=== PATIENT | male | born 1975 ===

== ENCOUNTER 2018-07-21 12:48 | Emergency (ER) | payer OTHER ==
[2018-07-21 12:58] VITALS: RESP 18
[2018-07-21] MEDS ORDERED: SODIUM CHLORIDE 0.9% 1,000 ML IV STA (13:21)
[2018-07-21 14:02] LABS: Appearance,Urine Clear (Clear); Basophils # (A) 0.1 k/uL (0-0.2); Basophils % (A) 1 %; Bilirubin,Urine Negative (Negative); Blood,Urine Negative (Negative); Color,Urine Yellow; Eosinophils # (A) 0.2 k/uL (0-0.7); Eosinophils % (A) 3 %; Glucose,Urine (UA) Negative (Negative); HCT 44.9 % (39.0-53.0); HGB 15.5 gm/dL (13.0-17.5); Ketones,Urine Negative (Negative); Leukocyte Esterase,Urine Negative (Negative); Lymphocytes # (A) 2.6 k/uL (1.0-4.8); Lymphocytes % (A) 35 %; MCH 30.6 pg (25.0-35.0); MCHC 34.6 g/dL (31.0-37.0); MCV 88.5 fL (80.0-100.0); Mean Platelet Volume 6.5; Monocytes # (A) 0.3 k/uL (0-1.0); Monocytes % (A) 4 %; Neutrophils # (A) 4.1 k/uL (1.3-7.7); Neutrophils % (A) 55 %; Nitrite,Urine Negative (Negative); PH, Urine 6.5 (5.0-8.0); Platelet Count 227 k/uL (150-450); Protein,Urine Negative (Negative); RBC 5.07 m/uL (4.30-5.90); RDW 12.6 % (11.5-15.5); Urobilinogen,Urine <2.0 mg/dL (<2.0); WBC 7.4 k/uL (3.8-10.6)
[2018-07-21 14:10] LABS: ALT 40 U/L (21-72); AST 28 U/L (17-59); Alkaline Phosphatase 64 U/L (38-126); Anion Gap 9 mmol/L; Blood Urea Nitrogen 16 mg/dL (9-20); Calcium 9.3 mg/dL (8.4-10.2); Carbon Dioxide 26 mmol/L (22-30); Chloride 105 mmol/L (98-107); Glucose 119 mg/dL (74-99); Potassium 4.2 mmol/L (3.5-5.1); Sodium 140 mmol/L (137-145); Total Bilirubin 0.5 mg/dL (0.2-1.3); Total Protein 7.1 g/dL (6.3-8.2)
--- NOTE | 2018-07-21 14:24 | ED ---
General Adult HPI - General Chief complaint: Dizziness Stated complaint: headache Time Seen by Provider: 07/21/18 13:21 Source: patient, RN notes reviewed Mode of arrival: ambulatory Limitations: no limitations - History of Present Illness Initial comments: 43-year-old male presents emergency Department with intermittent headache, head pressure and dizziness. Patient states that symptoms have been going on for a while but seemed worse over the last 1 week. He states he had suppression the back side of his head and slight dizziness. He states he does not have take anything in his symptoms resolved. Denies any trauma denies fever, chills, neck pain, neck stiffness, chest pain, shortness breath, nausea, vomiting. Patient states that his never had any like this in the past no prior imaging of his brain. Significant other states states that he's had normal behavior no confusion no change in mentation. - Related Data Home Medications Medication Instructions Recorded Confirmed Ibuprofen [Motrin Ib] 400 mg PO Q6H PRN 07/21/18 07/21/18 Previous Rx's Medication Instructions Recorded Meclizine [Antivert] 25 mg PO TID PRN #15 tab 07/21/18 Allergies Allergy/AdvReac Type Severity Reaction Status Date / Time No Known Allergies Allergy Verified 07/21/18 13:38 Review of Systems ROS Statement: Those systems with pertinent positive or pertinent negative responses have been documented in the HPI. ROS Other: All systems not noted in ROS Statement are negative. Past Medical History Past Medical History: No Reported History History of Any Multi-Drug Resistant Organisms: None Reported Past Surgical History: No Surgical Hx Reported Past Psychological History: No Psychological Hx Reported Smoking Status: Never smoker Past Alcohol Use History: None Reported Past Drug Use History: None Reported General Exam Limitations: no limitations General appearance: alert, in no apparent distress Head exam: Present: atraumatic, normocephalic, normal inspection Eye exam: Present: normal appearance, PERRL, EOMI. Absent: scleral icterus, conjunctival injection, periorbital swelling ENT exam: Present: normal exam, normal oropharynx, mucous membranes moist Neck exam: Present: normal inspection, full ROM. Absent: tenderness, meningismus, lymphadenopathy Respiratory exam: Present: normal lung sounds bilaterally. Absent: respiratory distress, wheezes, rales, rhonchi, stridor Cardiovascular Exam: Present: regular rate, normal rhythm, normal heart sounds. Absent: systolic murmur, diastolic murmur, rubs, gallop, clicks Extremities exam: Present: normal inspection, full ROM, normal capillary refill. Absent: tenderness, pedal edema, joint swelling, calf tenderness Back exam: Present: full ROM. Absent: tenderness Neurological exam: Present: alert, oriented X3, CN II-XII intact, reflexes normal, other (Finger to nose intact bilaterally). Absent: motor sensory deficit Skin exam: Present: warm, dry, intact, normal color. Absent: rash Course Vital Signs 07/21/18 07/21/18 12:56 14:00 Temperature 97.5 F L Pulse Rate 66 60 Respiratory 18 18 Rate Blood Pressure 143/80 126/77 O2 Sat by Pulse 98 97 Oximetry EKG Findings - EKG Comments: EKG Findings:: EKG performed at 13:40 normal sinus rhythm with rate of 62 NM 138 QRS 94 QTC is QTC 380/[address] elevation or depression, normal ST segments Medical Decision Making - Medical Decision Making 43-year-old male presented for dizziness, intermittent head pressure. Patient had lab work, CT, EKG. Patient's found to have upper vomit CSF fluid collection the cerebellum. Patient may have underlying cyst. Patient will follow-up neurologist, PCP. Patient feels comfortable being discharged with Antivert return parameters were discussed. - Lab Data Result diagrams: 07/21/18 13:44 07/21/18 13:44 Lab Results 07/21/18 07/21/18 07/21/18 Range/Units 13:44 13:44 13:44 WBC 7.4 (3.8-10.6) k/uL RBC 5.07 (4.30-5.90) m/uL Hgb 15.5 (13.0-17.5) gm/dL Hct 44.9 (39.0-53.0) % MCV 88.5 (80.0-100.0) fL MCH 30.6 (25.0-35.0) pg MCHC 34.6 (31.0-37.0) g/dL RDW 12.6 (11.5-15.5) % Plt Count 227 (150-450) k/uL Neutrophils % 55 % Lymphocytes % 35 % Monocytes % 4 % Eosinophils % 3 % Basophils % 1 % Neutrophils # 4.1 (1.3-7.7) k/uL Lymphocytes # 2.6 (1.0-4.8) k/uL Monocytes # 0.3 (0-1.0) k/uL Eosinophils # 0.2 (0-0.7) k/uL Basophils # 0.1 (0-0.2) k/uL Sodium 140 (137-145) mmol/L Potassium 4.2 (3.5-5.1) mmol/L Chloride 105 (98-107) mmol/L Carbon Dioxide 26 (22-30) mmol/L Anion Gap 9 mmol/L BUN 16 (9-20) mg/dL Creatinine 0.80 (0.66-1.25) mg/dL Est GFR (CKD-EPI)AfAm >90 (>60 ml/min/1.73 sqM) Est GFR (CKD-EPI)NonAf >90 (>60 ml/min/1.73 sqM) Glucose 119 H (74-99) mg/dL Calcium 9.3 (8.4-10.2) mg/dL Total Bilirubin 0.5 (0.2-1.3) mg/dL AST 28 (17-59) U/L ALT 40 (21-72) U/L Alkaline Phosphatase 64 (38-126) U/L Troponin I <0.012 (0.000-0.034) ng/mL Total Protein 7.1 (6.3-8.2) g/dL Albumin 4.0 (3.5-5.0) g/dL Urine Color Urine Appearance (Clear) Urine pH (5.0-8.0) Ur Specific [place] (1.001-1.035) Urine Protein (Negative) Urine Glucose (UA) (Negative) Urine Ketones (Negative) Urine Blood (Negative) Urine Nitrite (Negative) Urine Bilirubin (Negative) Urine Urobilinogen (<2.0) mg/dL Ur Leukocyte Esterase (Negative) 07/21/18 Range/Units 13:44 WBC (3.8-10.6) k/uL RBC (4.30-5.90) m/uL Hgb (13.0-17.5) gm/dL Hct (39.0-53.0) % MCV (80.0-100.0) fL MCH (25.0-35.0) pg MCHC (31.0-37.0) g/dL RDW (11.5-15.5) % Plt Count (150-450) k/uL Neutrophils % % Lymphocytes % % Monocytes % % Eosinophils % % Basophils % % Neutrophils # (1.3-7.7) k/uL Lymphocytes # (1.0-4.8) k/uL Monocytes # (0-1.0) k/uL Eosinophils # (0-0.7) k/uL Basophils # (0-0.2) k/uL Sodium (137-145) mmol/L Potassium (3.5-5.1) mmol/L Chloride (98-107) mmol/L Carbon Dioxide (22-30) mmol/L Anion Gap mmol/L BUN (9-20) mg/dL Creatinine (0.66-1.25) mg/dL Est GFR (CKD-EPI)AfAm (>60 ml/min/1.73 sqM) Est GFR (CKD-EPI)NonAf (>60 ml/min/1.73 sqM) Glucose (74-99) mg/dL Calcium (8.4-10.2) mg/dL Total Bilirubin (0.2-1.3) mg/dL AST (17-59) U/L ALT (21-72) U/L Alkaline Phosphatase (38-126) U/L Troponin I (0.000-0.034) ng/mL Total Protein (6.3-8.2) g/dL Albumin (3.5-5.0) g/dL Urine Color Yellow Urine Appearance Clear (Clear) Urine pH 6.5 (5.0-8.0) Ur Specific [place] 1.010 (1.001-1.035) Urine Protein Negative (Negative) Urine Glucose (UA) Negative (Negative) Urine Ketones Negative (Negative) Urine Blood Negative (Negative) Urine Nitrite Negative (Negative) Urine Bilirubin Negative (Negative) Urine Urobilinogen <2.0 (<2.0) mg/dL Ur Leukocyte Esterase Negative (Negative) Disposition Clinical Impression: Dizziness, CSF abnormal Narrative: Prominent CSF collection Disposition: HOME SELF-CARE Condition: Stable Instructions: Dizziness (ED) Additional Instructions: Please return to the Emergency Department if symptoms worsen or any other concerns. Prescriptions: Meclizine [Antivert] 25 mg PO TID PRN #15 tab PRN Reason: Vertigo Is patient prescribed a controlled substance at d/c from ED?: No Referrals: Simi Kam MD [STAFF PHYSICIAN] - 1-2 days Venita Novoa MD [STAFF PHYSICIAN] - 1-2 days Time of Disposition: 15:19
--- NOTE | 2018-07-21 14:27 | CT ---
EXAMINATION TYPE: CT brain wo con DATE OF EXAM: 07/21/2018 COMPARISON: Headache and dizziness HISTORY: Pain, pressure, dizziness CT DLP: 1099.4 mGycm. Automated Exposure Control for Dose Reduction was Utilized. TECHNIQUE: CT scan of the head is performed without contrast. FINDINGS: There is no acute intracranial hemorrhage, mass effect, or midline shift identified. The ventricles and sulci are within normal limits in size. The globes are intact and the visualized sin uses are clear. Posterior fossa cyst may represent prominent cisterna magna versus arachnoid cyst. Ch anges of chronic sinusitis noted. There is a nasal septal deviation. IMPRESSION: 1. No acute intracranial hemorrhage, mass effect, or midline shift is seen. If there is concern for a cute ischemia correlate with MRI. 2. Prominent CSF collection posterior fossa. Differential diagnosis includes arachnoid cyst versus pr ominent cisterna magna. Follow-up MRI could BE obtained.
[2018-07-21 15:53] VITALS: BP 123/73; PULSE 62
[2018-07-21 16:19] VITALS: TEMP 97.8
== END 2018-07-21 16:19 | disposition home or self-care (01) ==
LOC: EC 12:48
DX: R83.6 Abnormal cytological findings in cerebrospinal fluid (principal); R42 Dizziness and giddiness; R51 Headache
CPT/HCPCS: 36415; 70450; 80053; 81003; 84484; 85025; 93005; 96360; 96361; 99284

== ENCOUNTER 2021-01-03 18:03 | Emergency (ER) | payer OTHER ==
[2021-01-03] MEDS ORDERED: IBUPROFEN 600 MG TAB PO STA (18:35)
[2021-01-03] MEDS ORDERED: ACETAMINOPHEN TAB 500 MG TAB PO STA (18:35)
--- NOTE | 2021-01-03 18:40 | ED ---
General Adult HPI - General Chief complaint: Fever Stated complaint: chills, fever Time Seen by Provider: 01/03/21 18:05 Source: patient, RN notes reviewed, old records reviewed Mode of arrival: ambulatory Limitations: no limitations - History of Present Illness Initial comments: This is a 45-year-old male who presents emergency department stating that yesterday he started having a fever and chills. Patient states that continues today. Patient states he has an occasional cough but no shortness of breath or difficulty breathing. Patient denies any chest pain. Patient denies any abdominal pain patient denies nausea vomiting. Patient states she has had one episode of diarrhea. Patient denies any loss of taste or smell. Patient states she did not get his COVID vaccine however he does not believe he is been around anyone with COVID. Patient denies any neck pain or stiffness. Patient denies any sore throat or ear pain. - Related Data Home Medications Medication Instructions Recorded Confirmed No Known Home Medications 01/03/21 01/03/21 Allergies Allergy/AdvReac Type Severity Reaction Status Date / Time No Known Allergies Allergy Verified 01/03/21 18:55 Review of Systems ROS Statement: Those systems with pertinent positive or pertinent negative responses have been documented in the HPI. ROS Other: All systems not noted in ROS Statement are negative. Past Medical History Past Medical History: No Reported History History of Any Multi-Drug Resistant Organisms: None Reported Past Surgical History: Orthopedic Surgery Past Psychological History: No Psychological Hx Reported Smoking Status: Never smoker Past Alcohol Use History: None Reported Past Drug Use History: None Reported General Exam - General Exam Comments Initial Comments: GENERAL: Patient is well-developed and well-nourished. Patient is nontoxic and well- hydrated and is in mild distress. ENT: Neck is soft and supple. No significant lymphadenopathy is noted. Oropharynx is clear. Moist mucous membranes. Neck has full range of motion without eliciting any pain. EYES: The sclera were anicteric and conjunctiva were pink and moist. Extraocular movements were intact and pupils were equal round and reactive to light. Eyelids were unremarkable. PULMONARY: Unlabored respirations. Good breath sounds bilaterally. No audible rales rhonchi or wheezing was noted. CARDIOVASCULAR: There is a regular rate and rhythm without any murmurs gallops or rubs. ABDOMEN: Soft and nontender with normal bowel sounds. SKIN: Skin is clear with no lesions or rashes and otherwise unremarkable. NEUROLOGIC: Patient is alert and oriented x3. Cranial nerves II through XII are grossly intact. Motor and sensory are also intact. Normal speech, volume and content. Symmetrical smile. MUSCULOSKELETAL: Normal extremities with adequate strength and full range of motion. LYMPHATICS: No significant lymphadenopathy is noted PSYCHIATRIC: Normal psychiatric evaluation. Limitations: no limitations Course Vital Signs 01/03/21 01/03/21 18:04 21:50 Temperature 98.2 F 98.4 F Pulse Rate 76 69 Respiratory 20 18 Rate Blood Pressure 133/86 117/61 O2 Sat by Pulse 93 L 96 Oximetry Medical Decision Making - Medical Decision Making Chest x-ray shows bilateral infiltrates consistent COVID. Patient received the monoclonal antibodies. - Lab Data Lab Results 01/03/21 01/03/21 Range/Units 18:44 18:44 Coronavirus (PCR) Detected A (Not Detectd) Influenza Type A RNA Not Detected (Not Detectd) Influenza Type B (PCR) Not Detected (Not Detectd) Disposition Clinical Impression: Pneumonia due to COVID-19 virus Disposition: HOME SELF-CARE Condition: Good Instructions (If sedation given, give patient instructions): Coronavirus Disease 2019 (COVID-19) Is patient prescribed a controlled substance at d/c from ED?: No Referrals: None,Stated [Primary Care Provider] - 1-2 days Time of Disposition: 20:12
--- NOTE | 2021-01-03 19:08 | XR ---
EXAMINATION TYPE: XR chest 2V DATE OF EXAM: 01/03/2021 COMPARISON: NONE HISTORY: Fever and cough. TECHNIQUE: Frontal and lateral views of the chest are obtained. FINDINGS: There are mild bibasilar opacities. No pleural effusion, or pneumothorax seen. The cardia c silhouette size is within normal limits. The osseous structures are intact. IMPRESSION: Mild bibasilar opacities, suggestive of atelectasis.
[2021-01-03] MEDS ORDERED: SODIUM CHLORIDE 0.9% 50 ML IVPB ONE (19:30)
[2021-01-03] MEDS ORDERED: BAMLANIVIMAB (EUA) 700 MG, ETESEVIMAB (EUA) 1,400 MG in SODIUM CHLORIDE 0.9% 50 ML IVPB ONE (20:00)
[2021-01-03 22:32] VITALS: BP 117/61; PULSE 69; RESP 18; TEMP 98.4
== END 2021-01-03 21:50 | disposition home or self-care (01) ==
LOC: EC 18:03
DX: U07.1 COVID-19 (principal); J12.82 Pneumonia due to coronavirus disease 2019
CPT/HCPCS: 87502; 87635; 71046; 99283; 96360; Q0245